=== PATIENT | female | born 1985 | race Caucasian/White ===

== ENCOUNTER 2017-03-17 11:47 | Emergency (ER) | payer OTHER | END 2017-03-17 12:35 | disposition home or self-care (01) | LOC: CED 11:47 | DX: J06.9 Acute upper respiratory infection, unspecified (principal); F17.210 Nicotine dependence, cigarettes, uncomplicated; Z20.818 Contact with and (suspected) exposure to other bacterial communicable diseases | CPT/HCPCS: 99282 ==